=== PATIENT | female | born 1990 | race African-American/Black ===

== ENCOUNTER 2022-01-04 09:24 | Emergency (ER) | payer OTHER ==
[~2022-01-04] VITALS: Ht 152.4 cm; Wt 50.0 kg
[2022-01-04 09:35] VITALS: BP 130/77
[2022-01-04] MEDS ORDERED: BACITRACIN ZINC OINT UDPKT TOP ONE (09:45)
[2022-01-04] MEDS ORDERED: ACETAMINOPHEN 325MG TABLET PO ONE (09:45)
[2022-01-04] MEDS: LIDOCAINE HCL/PF 1% 10 MG/ML 5ML VIAL INFIL ONE ×2 (09:54→09:56)
[2022-01-04] MEDS ORDERED: LIDOCAINE HCL 1% 20ML VIAL (Pyxis) INJ INFIL NR (10:00)
[2022-01-04] MEDS ORDERED: TOPUD PO (10:35)
== END 2022-01-04 10:42 | disposition home or self-care (01) ==
LOC: ER 09:24
DX: S01.511A Laceration without foreign body of lip, initial encounter (principal); S80.212A Abrasion, left knee, initial encounter; W18.39XA Other fall on same level, initial encounter; Y93.89 Activity, other specified; Y92.89 Other specified places as the place of occurrence of the external cause; Y99.8 Other external cause status
CPT/HCPCS: 12011; 99283; J3490; Z7610